=== PATIENT | female | born 1990 | race Two or more races ===

== ENCOUNTER → 2017-10-09 17:28 | Outpatient (CLI) | payer OTHER | END | disposition home or self-care (01) | LOC: RAD 17:28 | DX: M54.2 Cervicalgia (principal); M26.69 Other specified disorders of temporomandibular joint; M62.830 Muscle spasm of back ==

== ENCOUNTER 2018-04-29 11:04 | Outpatient (CLI) | payer OTHER | END 2018-04-29 11:17 | disposition home or self-care (01) | LOC: SONOGRAMA 11:04 | DX: N60.01 Solitary cyst of right breast (principal) ==

== ENCOUNTER 2018-11-13 13:36 | Outpatient (CLI) | payer OTHER | END 2018-11-13 13:54 | disposition home or self-care (01) | LOC: TOM 13:36 | DX: G44.211 Episodic tension-type headache, intractable (principal) ==

== ENCOUNTER 2019-01-17 08:20 | Outpatient (CLI) | payer OTHER ==
[~2019-01-17] VITALS: Ht 152.4 cm; Wt 56.7 kg
== END 2019-01-17 08:40 | disposition home or self-care (01) ==
LOC: OFIC 805 08:20
DX: M26.613 Adhesions and ankylosis of bilateral temporomandibular joint (principal); J31.2 Chronic pharyngitis

== ENCOUNTER 2019-03-26 11:17 | Outpatient (CLI) | payer OTHER | END 2019-03-26 11:25 | disposition home or self-care (01) | LOC: SONOGRAMA 11:17 | DX: E28.2 Polycystic ovarian syndrome (principal); E28.1 Androgen excess ==

== ENCOUNTER 2020-09-10 15:44 | Outpatient (CLI) | payer OTHER | END 2020-09-10 15:52 | disposition home or self-care (01) | LOC: RAD 15:44 | PROVIDERS: ATTEND Orthopaedic Surgery | DX: M79.672 Pain in left foot (principal) ==

== ENCOUNTER 2021-01-06 11:40 | Outpatient (CLI) | payer OTHER | END 2021-01-06 11:54 | disposition home or self-care (01) | LOC: MRI 11:40 | PROVIDERS: ATTEND Podiatrist | DX: M77.8 Other enthesopathies, not elsewhere classified (principal); S92.811A Other fracture of right foot, initial encounter for closed fracture; M79.672 Pain in left foot | CPT/HCPCS: 73218 ==

== ENCOUNTER 2022-11-27 17:23 | Emergency (ER) | payer OTHER ==
[~2022-11-27] VITALS: Ht 154.9 cm; Wt 54.4 kg
== END 2022-11-27 21:05 | disposition home or self-care (01) ==
LOC: ER 17:23
DX: S14.5XXA Injury of cervical sympathetic nerves, initial encounter (principal); S49.81XA Other specified injuries of right shoulder and upper arm, initial encounter; X58.XXXA Exposure to other specified factors, initial encounter; W18.39XA Other fall on same level, initial encounter; Y93.I9 Activity, other involving external motion; Y92.89 Other specified places as the place of occurrence of the external cause; Y99.8 Other external cause status